=== PATIENT | female | born 1975 | race Hispanic/Latino ===

== ENCOUNTER 2022-09-02 14:02 | Emergency (ER) | payer BC, OTHER ==
--- OUTSIDE RECORDS SUMMARY | 2022-09-02 14:05 | XMS REPORT | Continuity of Care Document ---
:1975 Author Organization [facility] t Address [address] [place] [address] Care Team Providers Name Role Phone APOORVA LUJAN Primary Care Physician Unavailable FUAD TATE Attending Clinician Unavailable Fuad Sanders Attending Clinician Joseph Poole Attending Clinician Gutierrez Cronin DO Attending Clinician Doctor Unassigned, [place] Attending Clinician Unavailable Payers Payer Name Policy Type Policy Number Effective Date Expiration Date Dianna GARCIA II [id number] 2018 00:00:00 [employer] [id number] 2020 2021 OUT OF NETWORK 00:00:00 00:00:00 Problems Condition Condition Condition Status Onset Resolution Last Treating Co mments Source Name Details Category Date Date Treatment Clinician Date No known No known Disease Unive rs active active ity of problems problems [facility] Amnesia Amnesia Problem Active 2021-07-27 Me moria (finding) (finding) 23:07:02 l Active [place] Problem 07/27/2021 [facility] 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 23:07:02 l (disorder) (disorder) He rmann Active Problem 07/27/2021 [facility] Diplopia Diplopia Problem Active 2021-07-27 Memoria (disorder) (disorder) 23:07:02 l Active Jose Problem 07/27/2021 [facility] Paresthesi Paresthes Problem Active 2021-07-27 Memoria a ia 23:07:02 l (finding) (finding) Mirella dori Active Problem 07/27/2021 [facility] Postoperat Postopera Problem Active 2021-07-27 Memoria arie pain tive pain 23:07:02 l (finding) (finding) Mirella dori Active Problem 07/27/2021 [facility] 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 23:07:02 l (disorder) (disorder) Keon stein Active Problem 07/27/2021 [facility] Allergies, Adverse Reactions, Alerts Allergy Allergy Status Severity Reaction(s) Onset Inactive Treating Comm ents Source Name Type Date Date Clinician PREDNISO DRUG Active Other-Cmnt Univ ers NE INGREDI 04-18 ity of 00:00: [place] 00 Medical Branch Predniso Propensi Active Other - See Chest U nivers ne ty to comments 04-18 pain ity of adverse 00:00: [place] reaction 00 Medical s Branch Sulfa Propensi Active Rash 2018-08 Univers (Sulfona ty to 0-05 ity of mide adverse 00:00: [place] Antibiot reaction 00 Medica l ics) s Branch SULFA Drug Active Rash 2018-08 Univers (SULFONA Class 0-05 ity of MIDE 00:00: [place] ANTIBIOT 00 Medical ICS) Branch Sulfa Propensi Active Rash 2018-08 Univers (Sulfona ty to 0-05 ity of mide adverse 00:00: [place] Antibiot reaction 00 Medica l ics) s Branch sulfa sulfa Active Memoria drugs drugs l Jose Social History Social Habit Start Date Stop Date Quantity Comments Source History of Cigarette Smoker Universi ty of tobacco use [facility] Exposure to 2022-04-08 2022-04-18 Not sure University of SARS-CoV-2 00:00:00 17:20:00 [facility] [place] [facility] (event) [place] Tobacco use and 2019-05-28 2019-05-28 Smokeless tobacco Un iversity of exposure 00:00:00 00:00:00 non-user [facility] Sex Assigned At [birth year] Universit y of 00:00:00 00:00:00 [facility] Smoking Status Start Date Stop Date Source Social History 2020-07-25 19:34:[address] [facility] Occasional tobacco smoker 2019-05-28 00:00:00 Un iversity of [facility] Medications Ordered Filled Start Stop Current Ordering Indication Dosage Frequency Signature Comments Components Source Medication Medication Date Date Medication? Clinician (SIG) Name Name ketorolac No 30mg 30 mg, Unive rs (TORADOL) 04-18 Slow IV ity of injection 23:45: 22:54 Push, [place] 30 mg 00 :00 ONCE, 1 Medical dose, On Branch Thu04/18/22 at 1845, Routine diphenhydrA No 25mg 25 mg, Uni vers MINE 04-18 Slow IV ity of (BENADRYL) 23:45: 23:43 Push, [place] injection 00 :00 ONCE, 1 Medical 25 mg dose, On Branch Thu04/18/22 at 1845, STAT NaCl 0.9% No 1000mL at 999 Uni vers (NS) bolus 04-18 mL/hr, ity of infusion 23:30: 23:43 1,000 mL, Gerardo as 1,000 mL 00 :00 IV Medical Infusion, Branch ONCE, 1 dose, On Thu04/18/22 at 1830, NICKI metoclopram No 10mg 10 mg, Uni vers raegan HCl 04-18 Slow IV ity of (REGLAN) 22:45: 22:55 Push, [place] injection 00 :00 ONCE, 1 Medical 10 mg dose, On Branch Thu04/18/22 at 1745, NICKI ibuprofen 2020-08 No 800mg 800 mg, Uni vers (IBU) 018 Oral, ity of tablet 800 21:00: 19:54 ONCE, 1 Gerardo as mg 00 :00 dose, On Medical Mon Branch 06/10/21 at 1600, NICKI cefTRIAXone 2020-08- No 1000mg 1,000 mg, Univers (ROCEPHIN) 018 IV ity of 1,000 mg in 18:15: 20:26 Piggyback, [place] NaCl 0.9% 00 :00 ONCE, 1 Medical (NS) 50 mL dose, On [facility] MINI-BAG [facility] 06/10/21 at 1315, Administer over 30 Minutes, 50 mL
Reas on for Anti-Infec tive: Empiric Therapy for Suspected Infection< br>Empiric Therapy Site: Urine
D uration of therapy: 72 hours ondansetron 2020-08- No 4mg 4 mg, Slow Univers (ZOFRAN 0-18 10-18 IV Push, ity of (PF)) 17:00: 16:20 ONCE, 1 [place] injection 4 00 :00 dose, On Medi pebbles mg [facility] Branch 06/10/21 at 1200, Routine NaCl 0.9% 2020-08- No 500mL at [address] [facility] ers (NS) bolus 0-18 10-18 mL/hr, 500 it y of infusion 16:00: 20:27 mL, IV [place] 500 mL 00 :00 Infusion, Medical ONCE, 1 [place] dose, On [facility] 06/10/21 at 1100, STAT cephALEXin 2020-08- No [id number] 500mg Take 1 Univers (KEFLEX) 0-18 10-26 capsule by ity of 500 mg 00:00: 04:59 mouth 3 [place] capsule 00 :00 (three) Medical times [place] daily for 7 days. 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 ers ORAL 0-05 mouth. ity of 17:35: [address] Branch GABAPENTIN 2018-[address] [facility] ers ORAL 0-05 mouth. ity of 17:35: [address] GABAPENTIN 2018- Yes Take by [facility] ers ORAL 0-05 mouth. ity of 17:35: [address] gabapentin 2018- Yes 300 mg = 1 M emoria 300 MG Oral 1-14 cap, PO, l Capsule 16:38: Bedtime, # Herm dori 05 90 cap, 1 Refill(s), Pharmacy: [facility] #[id number] gabapentin 2018- Yes 300 mg = 1 M emoria 300 MG Oral 1-14 cap, PO, l Capsule 16:38: Bedtime, # Herm dori 05 90 cap, 1 Refill(s), Pharmacy: [facility] #[id number] gabapentin 2017-08 No See Memoria 300 MG Oral 0-10 Instructio l Capsule 21:20: ns, TAKE Marcus n 21 ONE CAPSULE BY MOUTH AT BEDTIME, # 30 cap, 3 Refill(s), Pharmacy: [facility] #[id number] gabapentin 2017-08 No See Memoria 300 MG Oral 0-10 Instructio l Capsule 21:20: ns, TAKE Marcus n 21 ONE CAPSULE BY MOUTH AT BEDTIME, # 30 cap, 3 Refill(s), Pharmacy: [facility] #[id number] Vital Signs Vital Name Observation Time Observation Value Comments Source Systolic blood 2022-04-19 00:00:00 115 mm[Hg] [facility] Diastolic blood 2022-04-19 00:00:00 64 mm[Hg] [facility] Heart rate 2022-04-19 00:00:00 65 /min [facility] Respiratory rate 2022-04-19 00:00:00 16 /min [facility] Oxygen saturation in 2022-04-19 00:00:00 100 /min [facility] Arterial blood by [facility] Pulse oximetry Branch Body temperature 2022-04-18 22:22:00 37.33 Claudia [facility] Body height 2022-04-18 22:22:00 149.9 cm [facility] Body weight 2022-04-18 22:22:00 63.504 kg [facility] BMI 2022-04-18 22:22:00 28.28 kg/m2 [facility] Systolic blood 2021-06-10 20:00:00 128 mm[Hg] Univer sity of pressure [facility] Diastolic blood 2021-06-10 20:00:00 72 mm[Hg] Unive rsity of pressure [facility] Heart rate 2021-06-10 20:00:00 70 /min [facility] Respiratory rate 2021-06-10 20:00:00 18 /min [facility] Oxygen saturation in 2021-06-10 20:00:00 99 /min [facility] Arterial blood by [facility] Pulse oximetry [place] Body temperature 2021-06-10 15:53:00 37.06 Claudia [facility] Body height 2021-06-10 15:53:00 150 cm [facility] Body weight 2021-06-10 15:53:00 62.143 kg [facility] BMI 2021-06-10 15:53:00 27.62 kg/m2 [facility] Systolic (mm Hg) 2020-07-25 19:32:00 Jacob sawant [place] Diastolic (mm Hg) 2020-07-25 19:32:00 Mem constantin [place] Heart Rate 2020-07-25 19:32:00 [facility] Jose Respitory Rate 2020-07-25 19:32:00 Roby munoz Jose Height 2020-07-25 19:32:00 147.32 cm [facility] Weight 2020-07-25 19:32:00 [facility] BMI Calculated 2020-07-25 19:32:00 Roby Roe Procedures Procedure Date / Time Performed Performing Clinician Sour e POCT TEST 2022-04-18 22:52:00 Fuad Tate [facility] LIPASE 2022-04-18 22:50:00 Fuad Tate [facility] COMP. METABOLIC PANEL 2022-04-18 22:50:00 Fuad Tate [facility] ([id number]) [facility] CBC WITH DIFF 2022-04-18 22:50:00 Fuad Tate [facility] URINALYSIS 2022-04-18 22:50:00 Fuad Tate [facility] COVID-19 (ID NOW RAPID 2022-04-18 22:50:00 [facility] Medical Branch CONSENT/REFUSAL FOR 2022-04-18 22:18:20 Doctor Unassigned, No [facility] AND Name Medical Branch TREATMENT COVID-19 (ID NOW RAPID 2021-06-10 17:56:00 Gutierrez Cronin [facility] TESTING) Medical Branch CT ABDOMEN PELVIS WO 2021-06-10 16:35:24 Gutierrez Cronin [facility] CONTRAST [facility] POCT TEST 2021-06-10 16:24:00 Gutierrez Cronin [facility] LIPASE 2021-06-10 16:13:00 Singer [facility] COMP. METABOLIC PANEL 2021-06-10 16:13:00 Gutierrez Cronin [facility] ([id number]) Medical Branch CBC WITH DIFF 2021-06-10 16:13:00 Singer [facility] URINALYSIS 2021-06-10 16:13:00 Singer [facility] NOTICE OF PRIVACY 2021-06-10 15:34:26 Doctor Unassigned, No [facility] PRACTICES Name Medical Branch CONSENT/REFUSAL FOR 2021-06-10 15:34:06 Doctor Unassigned, No [facility] AND Name Medical Branch TREATMENT Encounters Start End Encounter Admission Attending Care Care Encounter Source Date/Time Date/Time Type Type Clinicians Facility Department ID 2021-06-25 Emergency [facility] [id number] Univers 07:32:05 [facility] 2022-04-18 2022-04-18 Emergency X [facility] ERT [id number] Univers 17:24:00 19:47:00 [facility] 2022-04-18 2022-04-18 [facility] [id number] Univers 17:24:00 19:47:[address] [id number] [facility] [id number] [facility] [id number] [facility] 084 Branch 2021-07-25 2021-07-25 Ambulatory nullFlavo MNA [id number] Memoria 19:30:00 19:30:00 Pre-Reg r Neurology 05 l Jackelyn Garcia 2021-07-25 2021-07-25 Ambulatory nullFlavo MNA [id number] Memoria 19:30:00 19:30:00 Pre-Reg r Neurology 05 l Jackelyn Garcia 2021-07-25 2021-07-25 Outpatient MHIE MHIE [id number] Memoria 13:30:00 13:30:00 05 phoebe Garcia 2021-07-25 2021-07-25 Outpatient JUVENAL Poole MISCHER [id number] 13:30:00 13:30:00 Joseph [facility]d [facility] 2021-06-10 2021-06-10 Emergency Cronin, [facility] [id number] Univers 11:00:00 15:27:00 Gutierrez Horvath [id number] i ty of [place] 4.2.7.2.686 [facility] [id number] [facility] 084 [place] 2021-06-10 2021-06-10 Orders Doctor ERICH [id number] Univers 00:00:00 00:00:00 Only Unassigned, SHARLA [id number] ity of [place] [facility] 4.2.7.2.686 [facility] [id number] [facility] 009 Branch 2020-07-25 2020-07-26 Outpatient nullFlavo MNA [id number] Memoria 19:15:00 05:59:59 r Neurology 04 phoebe Garcia 2020-07-25 2020-07-26 Outpatient nullFlavo MNA [id number] Memoria 19:15:00 05:59:59 r Neurology 04 phoebe Ionabeverly Garcia 2020-07-25 2020-07-25 Outpatient DENITA PooleSCHFAISAL MHMISCHER [id number] 13:15:00 23:59:59 Joseph Vanesa Gunn 2020-07-25 2020-07-25 Outpatient MHIE MHIE [id number] Memoria 13:15:00 13:15:00 04 phoebe Garcia 2019-07-05 2019-07-05 Ambulatory nullFlavo MNA [id number] Memoria 22:00:00 22:00:00 Pre-Reg r Neurology 03 phoebe Garcia 2019-07-05 2019-07-05 Ambulatory nullFlavo MNA [id number] Memoria 22:00:00 22:00:00 Pre-Reg r Neurology 03 phoebe Garcia 2019-07-05 2019-07-05 Outpatient MHIE MHIE [id number] Memoria 16:00:00 16:00:00 03 phoebe Garcia 2019-07-05 2019-07-[address] [id number] 16:00:00 16:00:00 Joseph Khushboo Gunn 2018-10-05 2018-10-05 Outpatient MHIE MHIE [id number] Memoria 15:00:00 15:00:00 02 phoebe Garcia 2018-10-05 2018-10-05 Outpatient MHIE MHIE [id number] Memoria 15:00:00 15:00:00 02 phoebe Garcia 2018-09-06 2018-09-08 Phone nullFlavo MNA [id number] Memoria 16:33:00 05:59:59 Message r Neurology 04 phoebe Garcia 2018-09-06 2018-09-08 Phone nullFlavo MNA [id number] Memoria 16:33:00 05:59:59 Message r Neurology 04 phoebe Garcia 2018-09-06 2018-09-07 Outpatient MHMISCHER MHMISCHER [id number] 10:33:00 23:59:59 04 2018-06-02 2018-06-04 Phone nullFlavo MNA [id number] Memoria 19:40:00 04:59:59 Message r Neurology 03 phoebe Garcia 2018-06-02 2018-06-04 Phone nullFlavo MNA [id number] Memoria 19:40:00 04:59:59 Message r Neurology 03 phoebe Garcia 2018-06-02 2018-06-03 Outpatient MHMISCHER MHMISCHER [id number] 14:40:00 23:59:59 03 2018-03-04 2018-03-04 Outpatient MHIE MHIE [id number] Memoria 10:15:00 10:15:00 pohebe Garcia 2018-03-04 2018-03-04 Outpatient [facility] [id number] Memoria 10:15:00 10:15: phoebe Garcia Results Test Description Test Time Test Comments Results Result Comments Source COMP. METABOLIC PANEL ([id number]) 2022-04-18 23:21:31 Test Item Value Reference Range Interpretation Comme nts NA (test code = 8335402885) 138 mmol/L 135-145 K (test code = 9931683185) 4.6 mmol/L 3.5-5 CL (test code = 4543737440) 105 mmol/L 98-108 CO2 TOTAL (test code = 29 mmol/L 23-31 1081084804) AGAP (test code = 4923713133) 2-16 BUN (test code = 5118223883) 13 mg/dL 7-23 GLUCOSE (test code = 7150647495) 87 mg/dL 70-110 CREATININE (test code = 0.51 mg/dL 0.5-1.04 0116043962) TOTAL BILI (test code = 0.4 mg/dL 0.1-1.8 1108094689) CALCIUM (test code = 1353620294) 8.8 mg/dL 8.6-10.6 T PROTEIN (test code = 6.5 g/dL 6.3-8.2 4871377728) ALBUMIN (test code = 3075579758) 4.2 g/dL 3.5-5 ALK PHOS (test code = 1036122616) 92 U/L 34-122 ALTv (test code = 1742-6) 18 U/L 5-35 AST(SGOT) (test code = 29 U/L 13-40 9625478672) eGFR (test code = 4871811541) mL/min/1.73m2 SONG (test code = SONG) Association of Glomerular Filtration Rate (GFR) and Staging of Kidney Disease* + +--------- + ----+| GFR (mL/min/1.73 m2) ?| With Kidney Damage ?| ?Without Kidney Damage+ +--- + +| ?>90 ?| ?Stage one ?| ? Normal ?+ +-------- + -----+| ?60-89 ?| ?Stage two ?| ? Decreased GFR ? + +--------- + ----+| ?30-59 ?| ?Stage three ?| ? Stage three ? + +--------- + ----+| ?15-29 ?| ?Stage four ? | ? Stage four ?+ +-------- + -----+| ?<15 (or dialysis) ? ?| ?Stage five ? | ? Stage five ?+ +-------- + -----+ *Each stage assumes the associated GFR level has been in effect for at least three months. ?Stages 1 to 5, with or without kidney disease, indicate chronic kidney disease. Notes: Determination of stages one and two (with eGFR >59mL/min/1.73 m2) requires estimation of kidney damage for at least three months as defined by structural or functional abnormalities of the kidney, manifested by either:Pathological abnormalities or Markers of kidney damage (including abnormalities in the composition of the blood or urine or abnormalities in imaging tests). [facility] 23:09:28 Test Item Value Reference Range Interpretation Comments LIPASE (test code = 2107891673) 106 U/L 0-220 Lab Interpretation (test code = Normal 80742-3) [facility] [id number] 22:58:44 Test Item Value Reference Range Interpretation Comments WBC (test code = See_Comment [Automated message] 7690-2) The system [employer] generated this result transmitted ref erence range: 4.30 - 1 1.10 10*3/?L. The re ference range was not u sed to interpret this result as normal/abnor mal. RBC (test code = See_Comment [Automated message] 679-8) The system [employer] generated this result transmitted ref erence range: 3.93 - 5 .25 10*6/?L. The re ference range was not u sed to interpret this result as normal/abnor mal. HGB (test code = 14.4 g/dL 11.6-15 718-7) HCT (test code = 42.8 % 35.7-45.2 4544-3) MCV (test code = 89.2 fL 80.6-95.5 787-2) MCH (test code = 30.0 pg 25.9-32.8 785-6) MCHC (test code = 33.6 g/dL 31.6-35.1 786-4) RDW-SD (test code 40.2 fL 39-49.9 = 06856-0) RDW-CV (test code 12.2 % 12-15.5 = 788-0) PLT (test code = See_Comment [Automated message] 777-3) The system whic h generated this result transmitted ref erence range: 166 - 35 8 10*3/?L. The re ference range was not u sed to interpret this result as normal/abnor mal. MPV (test code = 9.5 fL 9.5-12.9 37564-1) NRBC/100 WBC (test See_Comment [Automat ed message] code = 1007622708) The syste m which generated this result transmitted ref erence range: 0.0 - 10 .0 /100 WBCs. The refer ence range was not u sed to interpret this result as normal/abnor mal. NRBC x10^3 (test See_Comment [Automated message] code = 2599928677) The syste m which generated this result transmitted ref erence range: 10*3/?L. The reference range was not used to interpr et this result as normal/abnormal . GRAN MAT (NEUT) % 56.5 % (test code = 770-8) IMM GRAN % (test 0.40 % code = 2884419736) LYMPH % (test code 34.8 % = 736-9) MONO % (test code 6.8 % = 5905-5) EOS % (test code = 1.2 % 713-8) BASO % (test code 0.3 % = 706-2) GRAN MAT 3.93 10*3/uL 1.88-7.09 x10^3(ANC) (test code = 8623585654) IMM GRAN x10^3 0.03 10*3/uL 0-0.06 (test code = 8718551513) LYMPH x10^3 (test 2.42 10*3/uL 1.32-3.29 code = 731-0) MONO x10^3 (test 0.47 10*3/uL 0.33-0.92 code = 742-7) EOS x10^3 (test 0.08 10*3/uL 0.03-0.39 code = 711-2) BASO x10^3 (test 0.01-0.07 code = 704-7) [facility] [id number] 22:52:00 Test Item Value Reference Range Interpretation Comments POCT PREG (test code = 1605) negative On board controls acceptable with present C Line (test code = 3574) POCT PREG LOT # (test code = 3575) [id number] POCT PREG TEST DATE (test 06/23/2023 code = 3576) Lab Interpretation (test code = Normal 09102-6) [facility]. METABOLIC PANEL (96630)2021-06-10 16:33:40 Test Item Value Reference Range Interpretation Comments NA (test code = 138 mmol/L 135-145 8118879036) K (test code = 4.3 mmol/L 3.5-5.0 0401027719) CL (test code = 109 mmol/L 98-108 H 7014025599) CO2 TOTAL (test code = 24 mmol/L 23-31 5239047328) AGAP (test code = 2-16 0466106670) BUN (test code = 12 mg/dL 7-23 5334086111) GLUCOSE (test code = 109 mg/dL 70-110 8827681229) CREATININE (test code = 0.43 mg/dL 0.50-1.04 L 6538876073) TOTAL BILI (test code = 0.6 mg/dL 0.1-1.8 2514969133) CALCIUM (test code = 9.2 mg/dL 8.6-10.6 1788934473) T PROTEIN (test code = 7.1 g/dL 6.3-8.2 4675361003) ALBUMIN (test code = 4.2 g/dL 3.5-5.0 2519321422) ALK PHOS (test code = 95 U/L 34-122 8871279252) ALTv (test code = 14 U/L 5-35 1742-6) AST(SGOT) (test code = 23 U/L 13-40 9248454164) eGFR (test code = mL/min/1.73m2 7722844370) SONG (test code = SONG) Association of Glomerular Filtration Rate (GFR) and Staging of Kidney Disease* + --+ --+ ------+| GFR (mL/min/1.73 m2) ?| With Kidney Damage ?| ?Without Kidney Damage+ --------+ --------+ +| ?>90 ?| ?Stage one ?| ? Normal ?+ ---+ ---+ -------+| ?60-89 ?| ?Stage two ?| ? Decreased GFR ? + --+ --+ ------+| ?30-59 ?| ?Stage three ?| ? Stage three ? + --+ --+ ------+| ?15-29 ?| ?Stage four ? | ? Stage four ?+ ---+ ---+ -------+| ?<15 (or dialysis) ? ?| ?Stage five ? | ? Stage five ?+ ---+ ---+ -------+ *Each stage assumes the associated GFR level has been in effect for at least three months. ?Stages 1 to 5, with or without kidney disease, indicate chronic kidney disease. Notes: Determination of stages one and two (with eGFR >59mL/min/1.73 m2) requires estimation of kidney damage for at least three months as defined by structural or functional abnormalities of the kidney, manifested by either:Pathological abnormalities or Markers of kidney damage (including abnormalities in the composition of the blood or urine or abnormalities in imaging tests). Lab Interpretation Abnormal (test code = 81069-4) [facility] 16:33:19 Test Item Value Reference Range Interpretation Comments LIPASE (test code = 3212047196) 70 U/L 0-220 Lab Interpretation (test code = Normal 05557-0) [facility] [id number] 16:24:00 Test Item Value Reference Range Interpretation Comments POCT PREG (test code = 1605) negative On board controls acceptable with present C Line (test code = 3574) POCT PREG LOT # (test code = 3575) [id number] POCT PREG TEST DATE (test 06/23/2023 code = 3576) Lab Interpretation (test code = Normal 51791-5) [facility] WITH [id number] 16:23:39 Test Item Value Reference Range Interpretation Comments WBC (test code = See_Comment [Automated message] 6690-2) The system [employer] generated this result transmitted ref erence range: 4.30 - 1 1.10 10*3/?L. The re ference range was not u sed to interpret this result as normal/abnor mal. RBC (test code = See_Comment [Automated message] 789-8) The system [employer] generated this result transmitted ref erence range: 3.93 - 5 .25 10*6/?L. The re ference range was not u sed to interpret this result as normal/abnor mal. HGB (test code = 14.6 g/dL 11.6-15.0 718-7) HCT (test code = 43.6 % 35.7-45.2 4544-3) MCV (test code = 91.0 fL 80.6-95.5 787-2) MCH (test code = 30.5 pg 25.9-32.8 785-6) MCHC (test code = 33.5 g/dL 31.6-35.1 786-4) RDW-SD (test code 43.8 fL 39.0-49.9 = 15296-2) RDW-CV (test code 13.1 % 12.0-15.5 = 788-0) PLT (test code = See_Comment [Automated message] 777-3) The system [employer] generated this result transmitted ref erence range: 166 - 35 8 10*3/?L. The re ference range was not u sed to interpret this result as normal/abnor mal. MPV (test code = 9.6 fL 9.5-12.9 52531-7) NRBC/100 WBC (test See_Comment [Automat ed message] code = 7736984549) The syste [employer] which generated this result transmitted ref erence range: 0.0 - 10 .0 /100 WBCs. The refer ence range was not u sed to interpret this result as normal/abnor mal. NRBC x10^3 (test <0.01 See_Comment [Automated message] code = 8690637978) The syste m which generated this result transmitted ref erence range: 10*3/?L. The reference range was not used to interpr et this result as normal/abnormal . GRAN MAT (NEUT) % 64.7 % (test code = 770-8) IMM GRAN % (test 0.30 % code = 9542112322) LYMPH % (test code 28.1 % = 736-9) MONO % (test code 5.5 % = 5905-5) EOS % (test code = 0.9 % 713-8) BASO % (test code 0.5 % = 706-2) GRAN MAT 4.15 10*3/uL 1.88-7.09 x10^3(ANC) (test code = 3040064215) IMM GRAN x10^3 <0.03 0.00-0.06 (test code = 9877928963) LYMPH x10^3 (test 1.80 10*3/uL 1.32-3.29 code = 731-0) MONO x10^3 (test 0.35 10*3/uL 0.33-0.92 code = 742-7) EOS x10^3 (test 0.06 10*3/uL 0.03-0.39 code = 711-2) BASO x10^3 (test 0.03 10*3/uL 0.01-0.07 code = 704-7) [facility]"
--- NOTE | 2022-09-02 16:03 | RAD REPORT ---
EXAM DESCRIPTION: RAD - Chest Single View - 09/02/2022 3:46 pm CLINICAL HISTORY: weakness, shortness of breath COMPARISON: None TECHNIQUE: AP portable chest image was obtained 09/02/2022 3:46 pm . FINDINGS: Lungs are clear. Heart and vasculature are normal. No measurable pleural effusion and no p neumothorax. No acute bony abnormality seen. No acute aortic findings suspected. IMPRESSION: No acute cardiopulmonary process.
[2022-09-02 16:06] LABS: Urine Blood Trace-lysed (Negative); Urine Glucose Negative (Negative); Urine Protein Negative (Negative); Urine pH 5.5 (5.0-7.0)
[2022-09-02 16:18] LABS: Absolute Lymphocytes (CBC) 2.4 K/uL (0.7-4.9); Hematocrit 45.1 % (36.0-45.0); Lymphocytes % 28.9 % (15.3-44.8); MCV 90.2 fL (80-100)
[2022-09-02 16:27] LABS: Urine Bacteria <20 /HPF (<20); Urine Crystals Unidentified Few /HPF (None Seen); Urine Mucus Slight /HPF (None Seen); Urine RBC <5 /HPF (None Seen)
[2022-09-02 16:50] LABS: ALT/SGPT 22 U/L (13-56); Albumin 3.6 g/dL (3.4-5.0); Alkaline Phosphatase 106 U/L (45-117); BUN Blood Urea Nitrogen 16 mg/dL (7-18); Bicarbonate 27 mmol/L (21-32); Bilirubin Total 0.2 mg/dL (0.2-1.0); Glomerular Filtration Rate 108 ml/min (=/>90); Glucose Level 116 mg/dL (74-106); Protein, Total 7.5 g/dL (6.4-8.2); Sodium Level 139 mmol/L (136-145); Troponin High Sensitivity 3.4 pg/mL (<58.9)
[2022-09-02 16:56] LABS: AST/SGOT 19 U/L (15-37); Bilirubin Direct < 0.1 mg/dL (0-0.2); Potassium 4.1 mmol/L (3.5-5.1)
[2022-09-02 17:21] LABS: SARS-COV-2 RT PCR NEGATIVE (NEGATIVE)
--- NOTE | 2022-09-02 17:24 | RAD REPORT ---
EXAM DESCRIPTION: CT - Head Brain Wo Cont - 09/02/2022 5:03 pm CLINICAL HISTORY: headache, dizziness COMPARISON: HEAD BRAIN W O CONTRAST dated 06/20/2013 TECHNIQUE: Axial 5 mm thick images of the head were obtained without IV contrast. All CT scans are performed using dose optimization technique as appropriate and may include automated exposure control or mA/KV adjustment according to patient size. FINDINGS: No intracranial hemorrhage, mass, edema or shift of mid-line structures. No acute infarcti on changes seen. No abnormal extra-axial fluid collections. Ventricles are normal. Mastoid air cells and visualized portions of the paranasal sinuses are clear. No acute bony findings. No significant change from comparison. IMPRESSION: Negative non-contrast CT head examination.
--- NOTE | 2022-09-02 17:47 | EDPHYS ---
Physician Documentation [facility] Name: Steph Mancera Age: 46 yrs Sex: Female : 1975 Arrival Date: 09/02/2022 Time: 14:05 Bed Treatment Private MD: ED Physician Antonio Lora HPI: 09/02 15:25 This 46 yrs old Female presents to ER via Ambulatory with complaints of cp Fatigue, Weakness, Headache. 15:25 The patient complains of pain to the top of head, forehead, right judaism and left cp judaism. The patient describes the headache as waxing and waning. Onset: The symptoms/episode began/occurred 5 day(s) ago. Associated signs and symptoms: Pertinent positives: dizziness, weakness, fatigue, Pertinent negatives: altered mental status, fever, neck stiffness, paresthesias, Photophobia vision changes, vomiting. Severity of symptoms: in the emergency department the pain is unchanged, despite home interventions. The symptoms are alleviated by over the counter pain medication, OTC NSAIDS. Historical: - Allergies: 14:13 Sulfa (Sulfonamide Antibiotics); ll1 14:13 Grapefruit; ll1 - Home Meds: 18:05 Neurontin 300 mg Oral cap [Active]; eh3 - PMHx: 14:14 neuropathy; ll1 - PSHx: 14:13 hysterectomy; hernia repair; gastric bypass; ll1 - Immunization history:: Client reports receiving the 2nd dose of the Covid vaccine. - Social history:: Smoking status: Patient reports the use of cigarette tobacco products, smokes one-half pack cigarettes per day. ROS: 15:30 Constitutional: Positive for fatigue, Negative for body aches, chills, fever, poor PO cp intake. 15:30 Eyes: Negative for injury, pain, redness, and discharge. cp 15:30 ENT: Negative for drainage from ear(s), ear pain, sore throat, difficulty swallowing, difficulty handling secretions. 15:30 Neck: Negative for pain with movement, pain at rest, stiffness. 15:30 Cardiovascular: Negative for chest pain, edema, palpitations. 15:30 Respiratory: Negative for cough, shortness of breath, wheezing. 15:30 Abdomen/GI: Negative for abdominal pain, vomiting, diarrhea, constipation. 15:30 : Negative for urinary symptoms. 15:30 Neuro: Positive for dizziness, headache, weakness. 15:30 All other systems are negative. Exam: 15:33 Constitutional: The patient appears in no acute distress, alert, awake, cp non-diaphoretic, non-toxic, well developed, well nourished. 15:33 Head/Face: Normocephalic, atraumatic. cp 15:33 Eyes: Periorbital structures: appear normal, Pupils: equal, round, and reactive to light and accomodation, Extraocular movements: intact throughout, Conjunctiva: normal, no exudate, no injection, Sclera: no appreciated abnormality, Lids and lashes: appear normal, bilaterally. 15:33 ENT: External ear(s): are unremarkable, Ear canal(s): are normal, clear, TM's: bulging, is not appreciated, bilaterally, dullness, bilaterally, erythema, is not appreciated, bilaterally, Nose: is normal, Mouth: Lips: moist, Oral mucosa: pink and intact, moist, Posterior pharynx: Airway: no evidence of obstruction, patent, Tonsils: are normal in appearance, erythema, is not appreciated, exudate, is not appreciated. 15:33 Neck: ROM/movement: is normal, is supple, without pain, no range of motions limitations, no meningismus. 15:33 Chest/axilla: Inspection: normal. 15:33 Cardiovascular: Rate: normal, Rhythm: regular, Edema: is not appreciated, JVD: is not appreciated. 15:33 Respiratory: the patient does not display signs of respiratory distress, Respirations: normal, no use of accessory muscles, no retractions, labored breathing, is not present, Breath sounds: are clear throughout, no decreased breath sounds, no stridor, no wheezing. 15:33 Abdomen/GI: Inspection: abdomen appears normal, Palpation: abdomen is soft and non-tender, in all quadrants. 15:33 Neuro: Orientation: to person, place \T\ time. Mentation: is normal, Cerebellar function: is grossly normal, Motor: moves all fours, strength is normal, Sensation: is normal. 15:45 ECG was reviewed by the Attending Physician. cp Vital Signs: 14:11 BP 122 / 70; Pulse 88; Resp 17; Temp 97.8; Pulse Ox 100% ; Weight 63.5 kg; Height 4 ft. ll1 11 in. (149.86 cm); Pain 3/10; 15:30 BP 115 / 57; Pulse 73; Resp 18; Temp 98.2(O); Pulse Ox 99% ; eh3 16:30 BP 98 / 80; Pulse 68; Resp 18; Pulse Ox 100% on R/A; eh3 17:30 BP 97 / 59; Pulse 62; Resp 16; Pulse Ox 99% on R/A; eh3 14:11 Body Mass Index 28.28 (63.50 kg, 149.86 cm) ll1 NIH Stroke Scale Scores: 15:30 NIHSS Score: 0 eh3 MDM: 15:05 Patient medically screened. cp 16:00 Differential diagnosis: meningitis, meningoencephalitis, migraine, sinusitis, cp subarachnoid bleed, subdural hematoma, tension headache. 17:45 Data reviewed: vital signs, nurses notes, lab test result(s), EKG, radiologic studies, cp CT scan, plain films. 17:45 I considered the following discharge prescriptions or medication management in the emergency department I discussed and recommended Over The Counter medications, Medications were administered in the Emergency Department. See MAR. Care significantly affected by the following chronic conditions: neuropathy. Counseling: I had a detailed discussion with the patient and/or guardian regarding: the historical points, exam findings, and any diagnostic results supporting the discharge/admit diagnosis, lab results, radiology results, the need for outpatient follow up, a family practitioner, to return to the emergency department if symptoms worsen or persist or if there are any questions or concerns that arise at home. 09/02 15:18 Order name: Basic Metabolic Panel; Complete Time: 17:09 09/02 17:09 Interpretation: Normal except: GLUC 116. 09/02 15:18 Order name: CBC with Diff; Complete Time: 17: 09/02 17:10 Interpretation: Normal except: RBC 5.00; HGB 15.1; HCT 45.1. 09/02 15:18 Order name: Magnesium; Complete Time: 17: 09/02 17:10 Interpretation: Reviewed. 09/02 15:18 Order name: Troponin HS; Complete Time: 17:09 09/02 17:10 Interpretation: Reviewed. 09/02 15:18 Order name: LFT's; Complete Time: 17: 09/02 17:10 Interpretation: Normal except: GLOB 3.9; A/G 0.9. cp 09/02 15:18 Order name: COVID-19/FLU A+B; Complete Time: 17:38 cp 09/02 17:38 Interpretation: Reviewed. cp 09/02 15:18 Order name: XRAY Chest (1 view); Complete Time: 16:39 cp 09/02 16:39 Interpretation: Report review. cp 09/02 15:18 Order name: EKG; Complete Time: 15:19 cp 09/02 15:18 Order name: Cardiac monitoring; Complete Time: 15:55 cp 09/02 15:19 Order name: Urine Microscopic Only; Complete Time: 16:39 cp 09/02 17:38 Interpretation: Reviewed. cp 09/02 16:06 Order name: Urine Dipstick-Ancillary; Complete Time: 16:39 EDMS 09/02 16:39 Interpretation: Normal except: UBLD Trace-lysed. cp 09/02 16:41 Order name: CT Head Brain wo Cont; Complete Time: 17:38 cp 09/02 17:38 Interpretation: Report reviewed. cp 09/02 15:18 Order name: EKG - Nurse/Tech; Complete Time: 15:55 cp 09/02 15:18 Order name: IV Saline Lock; Complete Time: 15:55 cp 09/02 15:18 Order name: Labs collected and sent; Complete Time: 15:55 cp 09/02 15:18 Order name: O2 Per Protocol; Complete Time: 15:55 cp 09/02 15:18 Order name: O2 Sat Monitoring; Complete Time: 15:55 cp 09/02 15:19 Order name: Urine Dipstick-Ancillary (obtain specimen); Complete Time: 16:23 cp EC:45 Rate is 66 beats/min. Rhythm is regular. SC interval is normal. QRS interval is normal. cp QT interval is normal. Interpreted by me. Reviewed by me. Administered Medications: 17:48 Not Given (Physician Discretion): Ketorolac 15 mg IVP once cp 17:55 Drug: Ketorolac 30 mg Route: IM; Site: right ventrogluteal; 3 18:06 Follow up: Response: Medication administered at discharge. eh3 Disposition Summary: 09/02/22 17:46 Discharge Ordered Location: Home cp Problem: new cp Symptoms: have improved cp Condition: Stable cp Diagnosis - Other malaise and fatigue cp - Headache cp - Muscle weakness (generalized) cp Followup: cp - With: Private Physician - When: 2 - 3 days - Reason: Recheck today's complaints Discharge Instructions: - Discharge Summary Sheet cp - General Headache Without Cause cp - Weakness cp - Fatigue cp Forms: - Medication Reconciliation Form cp - Thank You Letter cp - Antibiotic Education cp - Prescription Opioid Use cp Prescriptions: - Naprosyn 500 mg Oral Tablet - take 1 tablet by ORAL route 2 times per day take with food; 30 tablet; Refills: cp 0, Product Selection Permitted NIH Stroke Scale - NIH Stroke Score Date: 09/02/2022 Time: 15:30 Total Score = 0 1a. Level of Consciousness (LOC) - 0(Alert) 1b. Level of Consciousness (LOC) (Month \T\ Age) - 0(Both) 1c. LOC Commands (Open \T\ Closes Eyes/Product Trainer) - 0(Both) 2. Best Gaze (Lateral Gaze Paresis) - 0(Normal) 3. Visual Field Loss - 0(No visual loss) 4. Facial Palsy - 0(Normal) 5a. Left Arm: Motor (10-second hold) - 0(No drift) 5b. Right Arm: Motor (10-second hold) - 0(No drift) 6a. Left Leg: Motor (5-second hold - always test supine) - 0(No drift) 6b. Right Leg: Motor (5-second hold - always test supine) - 0(No drift) 7. Limb Ataxia (finger/nose \T\ heel/christianson - test with eyes open) - 0(Absent) 8. Sensory Loss (pinprick arms/legs/face) - 0(Normal) 9. Best Language: Aphasia (description/naming/reading) - 0(No aphasia) 10. Dysarthria (speech clarity - read or repeat words) - 0(Normal) 11. Extinction and Inattention (visual/tactile/auditory/spatial/personal) - 0(No abnormality) Initials: eh3 Signatures: Dispatcher [employer] EDMS Tan Ramsay PA PA cp Lewis, Lynsay RN RN 1 Yessenia Thomas RN RN 3 Corrections: (The following items were deleted from the chart) 14:14 14:13 PMHx: None; 1 1
--- NOTE | 2022-09-02 17:47 | ER ---
Nurse's Notes [facility] Name: Steph Mancera Age: 46 yrs Sex: Female : 1975 Arrival Date: 09/02/2022 Time: 14:05 Bed Treatment Private MD: Diagnosis: Other malaise and fatigue;Headache;Muscle weakness (generalized) Presentation: 09/02 14:11 Chief complaint: Patient states: Fatigue, weakness, RICHARDS for 5 days. No known fever. ll1 Slight nasal congestion in the morning. Coronavirus screen: Vaccine status: Patient reports receiving the 2nd dose of the covid vaccine. Client denies travel out of the [place] in the last 14 days. congestion, fatigue, headache, muscle pain, Client presents with at least one sign or symptom that may indicate coronavirus-19. Standard/surgical mask placed on the client. Ebola Screen: Patient denies travel to an Ebola-affected area in the 21 days before illness onset. No acute neurological deficit is noted. Initial Sepsis Screen: Does the patient meet any 2 criteria? No. Patient's initial sepsis screen is negative. Does the patient have a suspected source of infection? No. Patient's initial sepsis screen is negative. Risk Assessment: Do you want to hurt yourself or someone else? Patient reports no desire to harm self or others. Onset of symptoms was August 28, 2022. 14:11 Method Of Arrival: Ambulatory ll1 14:11 Acuity: OJRDI 3 ll1 Stroke Activation: Symptom onset > 6 hours Physician: Stroke Attending; Name: ; Notified At: ; Arrived At: Physician: Chief Stroke Resident; Name: ; Notified At: ; Arrived At: Physician: Stroke Resident; Name: ; Notified At: ; Arrived At: Physician: ED Attending; Name: ; Notified At: ; Arrived At: Physician: ED Resident; Name: ; Notified At: ; Arrived At: Historical: - Allergies: 14:13 Sulfa (Sulfonamide Antibiotics); ll1 14:13 Grapefruit; ll1 - Home Meds: 18:05 Neurontin 300 mg Oral cap [Active]; eh3 - PMHx: 14:14 neuropathy; ll1 - PSHx: 14:13 hysterectomy; hernia repair; gastric bypass; ll1 - Immunization history:: Client reports receiving the 2nd dose of the Covid vaccine. - Social history:: Smoking status: Patient reports the use of cigarette tobacco products, smokes one-half pack cigarettes per day. Screenin:30 [facility] ED Fall Risk Assessment (Adult) History of falling in the last 3 months, eh3 including since admission No falls in past 3 months (0 pts) Confusion or Disorientation No (0 pts) Intoxicated or Sedated No (0 pts) Impaired Gait No (0 pts) Mobility Assist Device Used No (0 pt) Altered Elimination No (0 pt) Score/Fall Risk Level 0 - 2 = Low Risk. Abuse screen: Denies threats or abuse. Denies injuries from another. Nutritional screening: No deficits noted. Tuberculosis screening: No symptoms or risk factors identified. Assessment: 15:30 VAN Scoring: Arm Drift: Patients demonstrates NO arm weakness. Patient is VAN Negative. eh3 Patient has been NPO before screening. The patient is alert, and able to follow commands. The patient does not exhibit slurred or garbled speech. The patient is not exhibiting difficulty speaking. The patient does not exhibit difficulty understanding words. The patient is able to swallow own secretions with no drooling or need for suction. Patient tolerated one teaspoon of water. No drooling, immediate coughing, gurgling, or clearing of the throat was noted. The patient tolerated 90mL of water. No drooling, immediate coughing, gurgling, or clearing of the throat was noted. The patient passed the bedside swallow screening. Oral medications may be given as ordered. Contact Physician for further diet orders. Provider notified of bedside swallow screening results: Tan RUIZ. TNKase (Tenecteplase) Screening: Indications: Definite evidence of stroke, ischemic, embolic, or hypertensive: No. General: Appears in no apparent distress. uncomfortable, Behavior is calm, cooperative, appropriate for age. Pain: Complains of pain in head Pain currently is 5 out of 10 on a pain scale. Neuro: Level of Consciousness is awake, alert, obeys commands, Oriented to person, place, time, situation, Reports dizziness, headache weakness. Cardiovascular: Capillary refill < 3 seconds Patient's skin is warm and dry. Respiratory: Airway is patent Respiratory effort is even, unlabored, Respiratory pattern is regular, symmetrical. GI: No signs and/or symptoms were reported involving the gastrointestinal system. Abdomen is round non-distended. : No signs and/or symptoms were reported regarding the genitourinary system. EENT: No signs and/or symptoms were reported regarding the EENT system. Derm: No signs and/or symptoms reported regarding the dermatologic system. Musculoskeletal: No signs and/or symptoms reported regarding the musculoskeletal system. 16:30 Reassessment: Patient appears in no apparent distress at this time. Patient and/or eh3 family updated on plan of care and expected duration. Pain level reassessed. Patient is alert, oriented x 3, equal unlabored respirations, skin warm/dry/pink. 17:30 Reassessment: Patient appears in no apparent distress at this time. Patient and/or eh3 family updated on plan of care and expected duration. Pain level reassessed. Patient is alert, oriented x 3, equal unlabored respirations, skin warm/dry/pink. Vital Signs: 14:11 BP 122 / 70; Pulse 88; Resp 17; Temp 97.8; Pulse Ox 100% ; Weight 63.5 kg; Height 4 ft. ll1 11 in. (149.86 cm); Pain 3/10; 15:30 BP 115 / 57; Pulse 73; Resp 18; Temp 98.2(O); Pulse Ox 99% ; eh3 16:30 BP 98 / 80; Pulse 68; Resp 18; Pulse Ox 100% on R/A; eh3 17:30 BP 97 / 59; Pulse 62; Resp 16; Pulse Ox 99% on R/A; eh3 14:11 Body Mass Index 28.28 (63.50 kg, 149.86 cm) ll1 NIH Stroke Scale Scores: 15:30 NIHSS Score: 0 eh3 ED Course: 14:05 Patient arrived in ED. as 14:13 Triage completed. ll1 14:14 Arm band placed on. ll1 15:05 Tan Ramsay PA is PHCP. cp 15:05 Antonio Lora MD is Attending Physician. cp 15:23 Yessenia Thomas, ABHIJEET is Primary Nurse. eh3 15:30 Patient has correct armband on for positive identification. Placed in gown. Bed in low eh3 position. Call light in reach. Side rails up X2. Adult w/ patient. Client placed on continuous cardiac and pulse oximetry monitoring. NIBP monitoring applied. Door closed. Noise minimized. Lights dimmed. Warm blanket given. 15:45 EKG done, by ED staff. tm3 15:47 XRAY Chest (1 view) In Process Unspecified. EDMS 15:58 Initial lab(s) drawn, by me, sent to lab. tm3 16:00 Missed attempt(s): 22 gauge in left forearm. Bleeding controlled, band aid applied, eh3 catheter tip intact. 16:07 Urine collected: clean catch specimen, clear. tm3 17:05 CT Head Brain wo Cont In Process Unspecified. EDMS 18:04 No provider procedures requiring assistance completed. Patient did not have IV access eh3 during this emergency room visit. Administered Medications: 17:48 Not Given (Physician Discretion): Ketorolac 15 mg IVP once cp 17:55 Drug: Ketorolac 30 mg Route: IM; Site: right ventrogluteal; eh3 18:06 Follow up: Response: Medication administered at discharge. eh3 Medication: 18:04 VIS not applicable for this client. eh3 Outcome: 17:46 Discharge ordered by MD. cp 18:04 Discharged to home ambulatory. eh3 18:04 Condition: stable 18:04 Discharge instructions given to patient, Instructed on discharge instructions, follow up and referral plans. medication usage, Demonstrated understanding of instructions, follow-up care, medications, Prescriptions given X 1. 18:05 Patient left the ED. eh3 NIH Stroke Scale - NIH Stroke Score Date: 09/02/2022 Time: 15:30 Total Score = 0 1a. Level of Consciousness (LOC) - 0(Alert) 1b. Level of Consciousness (LOC) (Month \T\ Age) - 0(Both) 1c. LOC Commands (Open \T\ Closes Eyes/Custom Garment Designer) - 0(Both) 2. Best Gaze (Lateral Gaze Paresis) - 0(Normal) 3. Visual Field Loss - 0(No visual loss) 4. Facial Palsy - 0(Normal) 5a. Left Arm: Motor (10-second hold) - 0(No drift) 5b. Right Arm: Motor (10-second hold) - 0(No drift) 6a. Left Leg: Motor (5-second hold - always test supine) - 0(No drift) 6b. Right Leg: Motor (5-second hold - always test supine) - 0(No drift) 7. Limb Ataxia (finger/nose \T\ heel/christianson - test with eyes open) - 0(Absent) 8. Sensory Loss (pinprick arms/legs/face) - 0(Normal) 9. Best Language: Aphasia (description/naming/reading) - 0(No aphasia) 10. Dysarthria (speech clarity - read or repeat words) - 0(Normal) 11. Extinction and Inattention (visual/tactile/auditory/spatial/personal) - 0(No abnormality) Initials: eh3 Signatures: Dispatcher [employer] EDMS Jose Félix tm3 Cindy Rodrigues Corey, PA PA cp Lewis, Lynsay, RN RN 1 Yessenia Thomas, ABHIJEET RN 3 Corrections: (The following items were deleted from the chart) 14:14 14:13 PMHx: None; 1 1
[2022-09-02] MEDS ORDERED: KETOROLAC 30 MG/ML INJ ONE (17:50)
[2022-09-02 18:12] VITALS: TEMP 98.2
[2022-09-02 18:15] VITALS: BP 97/59; O2SAT 99
--- NOTE | 2022-09-03 14:55 | EKG ---
Test Date: 2022-09-02 Test Time: 15:38:51 Dry Color Mixer: TM MEASUREMENT RESULTS: Intervals: Rate: 66 TX: 108 QRSD: 68 QT: 380 QTc: 398 [place]: P: 32 TX: 108 QRS: 6 T: 47 INTERPRETIVE STATEMENTS: Sinus rhythm with short [place] Septal infarct, age undetermined Abnormal ECG No previous ECG available for comparison Electronically Signed On 09-03-22 14:54:03 CARDIAC CARE NURSE by Ivan Rachel
== END 2022-09-02 18:05 | disposition home or self-care (01) ==
LOC: ER 14:02
DX: R53.81 Other malaise (principal); R53.83 Other fatigue; M62.81 Muscle weakness (generalized); R51.9 Headache, unspecified; F17.210 Nicotine dependence, cigarettes, uncomplicated; Z20.822 Contact with and (suspected) exposure to COVID-19; Z88.2 Allergy status to sulfonamides; Z91.018 Allergy to other foods
CPT/HCPCS: 93005; 85025; 80048; 36415; 83735; 80076; 84484; 0240U; 70450; 71045; 96372; 99284; 81003; 81015